=== PATIENT | female | born 1935 | race Caucasian/White ===

== ENCOUNTER → 2017-01-14 | Outpatient (CLI) | payer MEDICARE, OTHER | LOC: MW.CHRC 08:00 | PROVIDERS: ATTEND Family Medicine | DX: Z51.81 Encounter for therapeutic drug level monitoring (principal); Z79.01 Long term (current) use of anticoagulants; I48.91 Unspecified atrial fibrillation | CPT/HCPCS: 85610; 99211 ==

== ENCOUNTER → 2017-01-17 | Outpatient (CLI) | payer MEDICARE, OTHER | LOC: MW.CHOBGYN 11:01 | PROVIDERS: ATTEND Nurse Practitioner Women's Health | DX: R39.9 Unspecified symptoms and signs involving the genitourinary system (principal); N39.0 Urinary tract infection, site not specified | CPT/HCPCS: 81001; G0463 ==

== ENCOUNTER → 2017-02-28 | Outpatient (CLI) | payer MEDICARE, OTHER | LOC: MW.CHFP 08:00 | PROVIDERS: ATTEND Student in an Organized Health Care Education/Training Program | DX: Z51.81 Encounter for therapeutic drug level monitoring (principal); Z79.01 Long term (current) use of anticoagulants; I48.91 Unspecified atrial fibrillation | CPT/HCPCS: 85610; 99211 ==

== ENCOUNTER → 2017-03-14 | Outpatient (CLI) | payer MEDICARE, OTHER ==
--- NOTE | 2017-03-18 09:10 | CR ---
EXAMINATION: Left knee HISTORY: Pain COMPARISON: None TECHNIQUE: 4 views FINDINGS/IMPRESSION: There is no acute osseous abnormality, dislocation, or fracture identified. Nanci nt spaces and bone mineralization are grossly preserved. No joint effusion or soft tissue swelling.
--- NOTE | 2017-03-18 09:15 | CR ---
EXAMINATION: Lumbar spine HISTORY: Left knee COMPARISON: None TECHNIQUE: AP and lateral views FINDINGS: There is a trace dextroscoliosis of the mid lumbar spine. The vertebral body heights appea r grossly maintained. Mild disc space narrowing noted at L5-S1. Marginal osteophytes are noted. Face t hypertrophy is noted within the lower lumbar spine. The SI joints are symmetric and likely at leas t partially fused. The osseous structures overall appear osteopenic. IMPRESSION: Moderate degenerative changes without acute findings.
== END ==
LOC: MW.CHORTHO 15:27
PROVIDERS: ATTEND Orthopaedic Surgery
DX: M25.562 Pain in left knee (principal)
CPT/HCPCS: 72100; 72100-26; 73564-26-LT; 73564-LT; G0463

== ENCOUNTER 2023-05-17 11:24 | Emergency (ER) | payer MEDICARE, OTHER ==
[2023-05-17] MEDS ORDERED: Sodium Chloride 0.9% 10 ML Syringe FLUSH PRN (11:44)
[2023-05-17] MEDS ORDERED: Sodium Chloride 0.9% 2.5 ML Syringe FLUSH PRN (11:44)
[2023-05-17] MEDS ORDERED: Sodium Chloride 0.9% 500 ML IV STA ×2 (11:55→12:45)
[2023-05-17 12:16] LABS: BASOPHILS PERCENT AUTO 0.6 % (0.0-1.5); EOSINOPHILS ABSOLUTE AUTO 0.1 K/uL (0.0-0.7); EOSINOPHILS PERCENT AUTO 1.5 % (0.0-7.0); HEMATOCRIT 33.7 % (36.0-46.0); HEMOGLOBIN 11.2 g/dL (12.0-16.0); LYMPHOCYTES ABSOLUTE AUTO 1.5 K/uL (0.6-2.4); LYMPHOCYTES PERCENT AUTO 32.2 % (16.0-40.0); MEAN CORPUSCULAR HEMOGLOBIN 31.1 pg (27.0-32.0); MEAN CORPUSCULAR HGB CONC 33.2 g/dL (31.0-37.0); MEAN CORPUSCULAR VOLUME 93.6 fL (80.0-98.0); MONOCYTES ABSOLUTE AUTO 0.4 K/uL (0.0-0.8); MONOCYTES PERCENT AUTO 8.1 % (0.0-15.0); NEUTROPHILS ABSOLUTE AUTO 2.8 K/uL (1.4-5.7); NEUTROPHILS PERCENT AUTO 57.6 % (48.0-80.0); NRBC ABSOLUTE 0 K/uL; PLATELET COUNT,PLT 171 K/uL (150-400); WHITE BLOOD CELL COUNT,WBC 4.79 K/uL (4.0-11.0)
[2023-05-17 12:25] LABS: APPEARANCE,URINE CLEAR; BILIRUBIN,URINE NEGATIVE (NEGATIVE); COLOR,URINE YELLOW; GLUCOSE,URINE NEGATIVE (NEGATIVE); KETONES,URINE NEGATIVE (NEGATIVE); LEUKOCYTE ESTERASE,URINE NEGATIVE (NEGATIVE); NITRITE,URINE NEGATIVE (NEGATIVE); OCCULT BLOOD,URINE SMALL (NEGATIVE); PROTEIN,URINE NEGATIVE (NEGATIVE); UROBILINOGEN,URINE 0.2 EU/dL (<2.0)
[2023-05-17 12:27] LABS: INR 2.02 (0.86-1.11)
[2023-05-17 12:35] LABS: AMORPHOUS SEDIMENT,URINE OCCASIONAL (NEGATIVE); BACTERIA,URINE FEW (NEGATIVE); EPITHELIAL CELLS,URINE FEW (NONE-FEW); SQUAMOUS EPITHELIAL CELLS,UR FEW; WBC,URINE 0-2 (0-5/HPF)
[2023-05-17 12:41] LABS: A/G RATIO 1.2 (0.9-1.6); ALBUMIN 3.7 g/dL (3.4-5.0); BILIRUBIN TOTAL 0.5 mg/dL (0.2-1.0); CALCIUM 8.3 mg/dL (8.5-10.1); CARBON DIOXIDE,CO2 26.5 mmol/L (21.0-32.0); CREATININE 0.7 mg/dL (0.6-1.0); EST CRCL DRUG DOSING (CG) 49.82 mL/min; MAGNESIUM 2.2 mg/dL (1.8-2.4); POTASSIUM,K 3.9 mmol/L (3.5-5.1); PROTEIN TOTAL,TP 6.7 g/dL (6.4-8.2)
[2023-05-17] MEDS ORDERED: Meclizine 25 MG Tab PO STA (12:44)
== END 2023-05-17 14:02 | disposition home or self-care (01) ==
LOC: MW.ED 11:24
DX: R42 Dizziness and giddiness (principal); I10 Essential (primary) hypertension; E03.9 Hypothyroidism, unspecified; Z79.01 Long term (current) use of anticoagulants; Z88.1 Allergy status to other antibiotic agents; Z79.899 Other long term (current) drug therapy; Z20.822 Contact with and (suspected) exposure to COVID-19
CPT/HCPCS: 36415; 80053; 81001; 83735; 84484; 85025; 85610; 93005; 96360; 99284; A9270; J3490; J7030; U0002; 93010; 99283

== ENCOUNTER 2023-11-01 16:39 | Inpatient (IN) | payer MEDICARE, OTHER ==
[2023-11-01] MEDS ORDERED: Sodium Chloride 0.9% 2.5 ML Syringe FLUSH PRN (20:21)
[2023-11-01] MEDS ORDERED: Sodium Chloride 0.9% 10 ML Syringe FLUSH PRN (20:21)
[2023-11-01 21:21] LABS: BASOPHILS ABSOLUTE AUTO 0.05 K/uL (0.00-0.20); BASOPHILS PERCENT AUTO 0.7 % (0.0-1.0); EOSINOPHILS ABSOLUTE AUTO 0.05 K/uL (0.00-0.45); EOSINOPHILS PERCENT AUTO 0.7 % (0.0-6.0); HEMATOCRIT 32.2 % (37.0-47.0); HEMOGLOBIN 10.8 g/dL (12.0-16.0); IMMATURE GRAN ABSOLUTE AUTO 0.01 K/uL (0.00-0.05); IMMATURE GRAN PERCENT AUTO 0.1 % (0.0-0.4); LYMPHOCYTES ABSOLUTE AUTO 2.14 K/uL (1.00-4.80); LYMPHOCYTES PERCENT AUTO 29.2 % (24.0-44.0); MEAN CORPUSCULAR HEMOGLOBIN 30.5 pg (28.0-32.0); MEAN CORPUSCULAR HGB CONC 33.5 g/dL (32.0-36.0); MEAN PLATELET VOLUME 10.7 fL (9.4-12.3); MONOCYTES ABSOLUTE AUTO 0.52 K/uL (0.00-0.80); MONOCYTES PERCENT AUTO 7.1 % (0.0-8.0); NEUTROPHILS ABSOLUTE AUTO 4.56 K/uL (1.80-7.70); NEUTROPHILS PERCENT AUTO 62.2 % (41.0-71.0); PLATELET COUNT,PLT 243 K/uL (150-400); RED BLOOD CELL COUNT 3.54 M/uL (4.10-5.30); WHITE BLOOD CELL COUNT,WBC 7.33 K/uL (3.9-11.3)
[2023-11-01 21:37] LABS: INR 4.64 (0.86-1.11)
[2023-11-01 22:00] LABS: ALBUMIN 3.6 g/dL (3.4-5.0); BILIRUBIN TOTAL 0.5 mg/dL (0.2-1.0); CALCIUM 8.9 mg/dL (8.5-10.1); CREATININE 0.7 mg/dL (0.6-1.0); EST CRCL DRUG DOSING (CG) 53.01 mL/min; MAGNESIUM 2.1 mg/dL (1.8-2.4); POTASSIUM,K 3.5 mmol/L (3.5-5.1); PROTEIN TOTAL,TP 7.2 g/dL (6.4-8.2); TSH ULTRASENSITIVE 5.91 uIU/mL (0.36-3.74)
[2023-11-02 00:39] LABS: BILIRUBIN,URINE NEGATIVE (NEGATIVE); COLOR,URINE YELLOW; GLUCOSE,URINE NEGATIVE (NEGATIVE); KETONES,URINE NEGATIVE (NEGATIVE); LEUKOCYTE ESTERASE,URINE NEGATIVE (NEGATIVE); NITRITE,URINE POSITIVE (NEGATIVE); OCCULT BLOOD,URINE MODERATE (NEGATIVE); PROTEIN,URINE NEGATIVE (NEGATIVE); UROBILINOGEN,URINE 0.2 EU/dL (<2.0)
[2023-11-02 01:07] LABS: APPEARANCE,URINE SLT CLOUDY
[2023-11-02 01:13] LABS: BACTERIA,URINE 3+ (NEGATIVE); EPITHELIAL CELLS,URINE RARE (NONE-FEW); RBC,URINE 0-2 (0-2/HPF); WBC,URINE 0-2 (0-5/HPF)
[2023-11-02] MEDS ORDERED: cefTRIAXone 1 GM in Sodium Chloride 0.9% 50 ML IV ONE (01:26)
[2023-11-02] MEDS ORDERED: Acetaminophen 325 MG Tab PO PRN (05:18)
[2023-11-02 07:05] LABS: BASOPHILS ABSOLUTE AUTO 0.05 K/uL (0.00-0.20); BASOPHILS PERCENT AUTO 0.8 % (0.0-1.0); EOSINOPHILS ABSOLUTE AUTO 0.03 K/uL (0.00-0.45); EOSINOPHILS PERCENT AUTO 0.5 % (0.0-6.0); HEMATOCRIT 31.6 % (37.0-47.0); HEMOGLOBIN 10.7 g/dL (12.0-16.0); IMMATURE GRAN ABSOLUTE AUTO 0.01 K/uL (0.00-0.05); IMMATURE GRAN PERCENT AUTO 0.2 % (0.0-0.4); LYMPHOCYTES ABSOLUTE AUTO 1.49 K/uL (1.00-4.80); LYMPHOCYTES PERCENT AUTO 25.2 % (24.0-44.0); MEAN CORPUSCULAR HEMOGLOBIN 31.8 pg (28.0-32.0); MEAN CORPUSCULAR HGB CONC 33.9 g/dL (32.0-36.0); MEAN CORPUSCULAR VOLUME 93.8 fL (83.0-99.0); MEAN PLATELET VOLUME 11.4 fL (9.4-12.3); MONOCYTES ABSOLUTE AUTO 0.33 K/uL (0.00-0.80); MONOCYTES PERCENT AUTO 5.6 % (0.0-8.0); NEUTROPHILS PERCENT AUTO 67.7 % (41.0-71.0); PLATELET COUNT,PLT 220 K/uL (150-400); RED BLOOD CELL COUNT 3.37 M/uL (4.10-5.30); WHITE BLOOD CELL COUNT,WBC 5.91 K/uL (3.9-11.3)
[2023-11-02 09:17] LABS: CALCIUM 8.8 mg/dL (8.5-10.1); CREATININE 0.7 mg/dL (0.6-1.0); EST CRCL DRUG DOSING (CG) 51.84 mL/min; POTASSIUM,K 3.4 mmol/L (3.5-5.1)
[2023-11-02 09:58] LABS: CORONAVIRUS COVID-19 NAA NEGATIVE (NEGATIVE); INFLUENZA A NAA NEGATIVE (NEGATIVE); INFLUENZA B NAA NEGATIVE (NEGATIVE); RESPIRATORY SYNCYTIAL VIR NAA NEGATIVE (NEGATIVE)
[2023-11-02] MEDS ORDERED: Potassium Chloride 20 MEQ Tab.ER PO ONE (10:46)
[2023-11-02] MEDS ORDERED: Warfarin 5 MG Tab PO SCH (11:00)
[2023-11-02] MEDS: Warfarin Sliding Scale PO SCH (14:00)
[2023-11-02] MEDS: atorvaSTATin 10 MG Tab PO SCH (20:20)
[2023-11-03] MEDS: cefTRIAXone 1 GM in Sodium Chloride 0.9% 50 ML IV SCH (00:11)
[2023-11-03 06:09] LABS: BASOPHILS ABSOLUTE AUTO 0.05 K/uL (0.00-0.20); BASOPHILS PERCENT AUTO 0.7 % (0.0-1.0); EOSINOPHILS ABSOLUTE AUTO 0.04 K/uL (0.00-0.45); EOSINOPHILS PERCENT AUTO 0.6 % (0.0-6.0); HEMATOCRIT 32.6 % (37.0-47.0); IMMATURE GRAN ABSOLUTE AUTO 0.01 K/uL (0.00-0.05); IMMATURE GRAN PERCENT AUTO 0.1 % (0.0-0.4); LYMPHOCYTES ABSOLUTE AUTO 1.23 K/uL (1.00-4.80); LYMPHOCYTES PERCENT AUTO 18.4 % (24.0-44.0); MEAN CORPUSCULAR HEMOGLOBIN 31.2 pg (28.0-32.0); MEAN CORPUSCULAR HGB CONC 33.7 g/dL (32.0-36.0); MEAN CORPUSCULAR VOLUME 92.4 fL (83.0-99.0); MEAN PLATELET VOLUME 11.2 fL (9.4-12.3); MONOCYTES ABSOLUTE AUTO 0.44 K/uL (0.00-0.80); MONOCYTES PERCENT AUTO 6.6 % (0.0-8.0); NEUTROPHILS PERCENT AUTO 73.6 % (41.0-71.0); PLATELET COUNT,PLT 225 K/uL (150-400); RED BLOOD CELL COUNT 3.53 M/uL (4.10-5.30); WHITE BLOOD CELL COUNT,WBC 6.67 K/uL (3.9-11.3)
[2023-11-03] MEDS: Levothyroxine 75 MCG Tab PO SCH ×2 (06:17→07:04)
[2023-11-03 06:26] LABS: CALCIUM 8.8 mg/dL (8.5-10.1); CARBON DIOXIDE,CO2 29.6 mmol/L (21.0-32.0); CREATININE 0.6 mg/dL (0.6-1.0); EST CRCL DRUG DOSING (CG) 60.48 mL/min; POTASSIUM,K 3.8 mmol/L (3.5-5.1)
[2023-11-03 06:50] LABS: INR 2.41 (0.86-1.11)
[2023-11-03] MEDS: Donepezil 5 MG Tab PO SCH (08:16)
[2023-11-03] MEDS: Lisinopril 5 MG Tab PO SCH (08:16)
[2023-11-03 12:47] LABS: PERCENT FE SATURATION 20.09 % (20-55)
[2023-11-03] MEDS: Warfarin Sliding Scale PO SCH (13:48)
[2023-11-03] MEDS ORDERED: Warfarin 5 MG Tab PO ONE (14:00)
[2023-11-03] MEDS: atorvaSTATin 10 MG Tab PO SCH (20:42)
[2023-11-04] MEDS: cefTRIAXone 1 GM in Sodium Chloride 0.9% 50 ML IV SCH (01:23)
[2023-11-04] MEDS: Levothyroxine 75 MCG Tab PO SCH (06:29)
[2023-11-04 06:30] LABS: HEMATOCRIT 30.9 % (37.0-47.0); HEMOGLOBIN 10.9 g/dL (12.0-16.0); MEAN CORPUSCULAR HEMOGLOBIN 34.3 pg (28.0-32.0); MEAN CORPUSCULAR HGB CONC 35.3 g/dL (32.0-36.0); MEAN CORPUSCULAR VOLUME 97.2 fL (83.0-99.0); MEAN PLATELET VOLUME 11.3 fL (9.4-12.3); PLATELET COUNT,PLT 247 K/uL (150-400); RED BLOOD CELL COUNT 3.18 M/uL (4.10-5.30); WHITE BLOOD CELL COUNT,WBC 6.43 K/uL (3.9-11.3)
[2023-11-04 06:38] LABS: CALCIUM 8.7 mg/dL (8.5-10.1); CARBON DIOXIDE,CO2 29.6 mmol/L (21.0-32.0); CREATININE 0.7 mg/dL (0.6-1.0); EST CRCL DRUG DOSING (CG) 51.84 mL/min; POTASSIUM,K 3.6 mmol/L (3.5-5.1)
[2023-11-04] MEDS: Donepezil 5 MG Tab PO SCH (09:41)
[2023-11-04] MEDS: Lisinopril 5 MG Tab PO SCH (09:41)
[2023-11-04 12:53] LABS: INR 2.01 (0.86-1.11)
[2023-11-04] MEDS ORDERED: Warfarin 5 MG Tab PO ONE (14:00)
[2023-11-04] MEDS: Iron Polysaccharides Complex 150 MG Cap PO SCH (14:23)
[2023-11-04] MEDS: Warfarin Sliding Scale PO SCH (14:24)
[2023-11-04] MEDS: atorvaSTATin 10 MG Tab PO SCH (20:55)
[2023-11-05] MEDS: cefTRIAXone 1 GM in Sodium Chloride 0.9% 50 ML IV SCH (00:38)
[2023-11-05 06:16] LABS: BASOPHILS ABSOLUTE AUTO 0.03 K/uL (0.00-0.20); BASOPHILS PERCENT AUTO 0.5 % (0.0-1.0); EOSINOPHILS ABSOLUTE AUTO 0.06 K/uL (0.00-0.45); HEMATOCRIT 33.5 % (37.0-47.0); HEMOGLOBIN 11.3 g/dL (12.0-16.0); IMMATURE GRAN ABSOLUTE AUTO 0.01 K/uL (0.00-0.05); IMMATURE GRAN PERCENT AUTO 0.2 % (0.0-0.4); LYMPHOCYTES ABSOLUTE AUTO 1.67 K/uL (1.00-4.80); LYMPHOCYTES PERCENT AUTO 27.5 % (24.0-44.0); MEAN CORPUSCULAR HEMOGLOBIN 30.8 pg (28.0-32.0); MEAN CORPUSCULAR HGB CONC 33.7 g/dL (32.0-36.0); MEAN CORPUSCULAR VOLUME 91.3 fL (83.0-99.0); MEAN PLATELET VOLUME 10.8 fL (9.4-12.3); MONOCYTES ABSOLUTE AUTO 0.55 K/uL (0.00-0.80); NEUTROPHILS ABSOLUTE AUTO 3.76 K/uL (1.80-7.70); NEUTROPHILS PERCENT AUTO 61.8 % (41.0-71.0); PLATELET COUNT,PLT 250 K/uL (150-400); RED BLOOD CELL COUNT 3.67 M/uL (4.10-5.30); WHITE BLOOD CELL COUNT,WBC 6.08 K/uL (3.9-11.3)
[2023-11-05] MEDS: Levothyroxine 75 MCG Tab PO SCH (06:34)
[2023-11-05 06:51] LABS: INR 1.95 (0.86-1.11)
[2023-11-05 07:11] LABS: A/G RATIO 0.9 (0.9-1.6); BILIRUBIN TOTAL 0.6 mg/dL (0.2-1.0); CALCIUM 8.8 mg/dL (8.5-10.1); CARBON DIOXIDE,CO2 29.6 mmol/L (21.0-32.0); CREATININE 0.7 mg/dL (0.6-1.0); EST CRCL DRUG DOSING (CG) 51.84 mL/min; PROTEIN TOTAL,TP 6.5 g/dL (6.4-8.2)
[2023-11-05] MEDS: Donepezil 5 MG Tab PO SCH (08:35)
[2023-11-05] MEDS: Iron Polysaccharides Complex 150 MG Cap PO SCH (08:35)
[2023-11-05] MEDS: Lisinopril 5 MG Tab PO SCH (12:00)
[2023-11-05] MEDS: Warfarin Sliding Scale PO SCH (13:27)
[2023-11-05] MEDS ORDERED: Warfarin 5 MG Tab PO ONE (14:00)
== END 2023-11-05 14:10 | disposition home health service (06) | DRG 690 ==
LOC: MW.ED 16:39 → MW.MS 11-02 01:26
PROVIDERS: ADMIT Internal Medicine; ATTEND Family Medicine
DX: T45.511A Poisoning by anticoagulants, accidental (unintentional), initial encounter (principal); R26.89 Other abnormalities of gait and mobility; N30.00 Acute cystitis without hematuria; N39.0 Urinary tract infection, site not specified; E03.9 Hypothyroidism, unspecified; I48.91 Unspecified atrial fibrillation; Z88.8 Allergy status to other drugs, medicaments and biological substances; I10 Essential (primary) hypertension; Z20.822 Contact with and (suspected) exposure to COVID-19; D50.9 Iron deficiency anemia, unspecified; R26.81 Unsteadiness on feet; Z88.2 Allergy status to sulfonamides; Z86.79 Personal history of other diseases of the circulatory system; Z11.52 Encounter for screening for COVID-19; Z79.01 Long term (current) use of anticoagulants; Z79.899 Other long term (current) drug therapy; Z90.710 Acquired absence of both cervix and uterus; Z79.890 Hormone replacement therapy
CPT/HCPCS: 0241U; 36415; 51798; 70450; 73502; 73610; 73630; 80048; 80053; 81001; 83550; 83605; 83735; 84439; 84443; 85025; 85027; 85610; 87040; 87086; 87088; 87186; 93005; 97163; 93010; 96374; 99285; 99285-25; A9270-GY; J0696; J3490